=== PATIENT | male | born 1985 | race Caucasian/White ===

== ENCOUNTER 2017-12-28 16:41 | Emergency (ER) | payer OTHER ==
[~2017-12-28] VITALS: Ht 182.9 cm; Wt 83.5 kg
--- NOTE | 2017-12-28 18:23 | RADIOLOGY REPORT ---
EXAMINATION: XR HAND, RIGHT CLINICAL INFORMATION: Right hand fifth PIP dislocation, status post reduction COMPARISON: None TECHNIQUE: PA, lateral, and oblique views of the right hand. FINDINGS: The right hand fifth PIP joint is in normal anatomic alignment. The bones, joints and soft tissues are unremarkable. IMPRESSION: Right hand fifth PIP joint is in normal alignment. No associated fracture.
--- NOTE | 2017-12-28 18:32 | ED HAND/WRIST INJURY COMPLAINT ---
History of Present Illness General Chief Complaint: Hand or Wrist Injury Stated Complaint: R PINKY DISLOCATION Source: patient Exam Limitations: no limitations Vital Signs & Intake/Output Vital Signs & Intake/Output Vital Signs Date Time Temp Pulse Resp B/P B/P Pulse O2 O2 Flow FiO2 Mean Ox Delivery Rate 12/28 1836 80 18 122/72 99 Room Air ED Intake and Output 12/29 0000 12/28 1200 Intake Total Output Total Balance Patient 184 lb Weight Allergies Coded Allergies: No Known Allergies (12/28/17) Triage Note: 32 Y/O MALE STATES HE STRUCK A BOX AND DISLOCATED FINGER (R 5TH FINGER). DEFORMITY NOTED. PT DENIES OTHER COMPLAINTS. DECLINES OFFER OF PAIN MEDS EVALD BY TAMIE SMITH IN TRIAGE FINGER REDUCED IN TRIAGE. SPLINT PLACED BY TAMIE Triage Nurses Notes Reviewed? yes Occurred: just prior to arrival Duration: hour(s): (1), constant, continues in ED Timing: single episode today Injury Environment: home Severity: moderate, severe Severity Numbers: 6 Pain/Injury Location: Right: 5th finger. Context: blow Method of Injury: direct blow No Modifying Factors: none HPI: 32-year-old male medical history is evaluation of dislocated right fifth digit. Patient reports he was trying to kill a spider with his hand. He went with this. He missed the box and INATEAD dislocating his fifth digit on the right side of the PIP. No numbness or tingling or other injuries. No wrist pain. Broken skin no abrasions. (Alberto Barreto) Past History Travel History Traveled to [place] past 21 day No Medical History Any Pertinent Medical History? see below for history Neurological: NONE EENT: NONE Cardiovascular: NONE Respiratory: NONE Gastrointestinal: NONE Hepatic: NONE Renal: NONE Musculoskeletal: NONE Psychiatric: NONE Endocrine: NONE Blood Disorders: NONE Cancer(s): NONE HEAD WAITRESS/Reproductive: NONE Surgical History Surgical History: non-contributory Psychosocial History What is your primary language Bengali Tobacco Use: Never used Family History Hx Contributory? No (Alberto Barreto) Review of Systems Review of Systems Constitutional: Reports: no symptoms. EENTM: Reports: no symptoms. Respiratory: Reports: no symptoms. Cardiovascular: Reports: no symptoms. GI: Reports: no symptoms. Genitourinary: Reports: no symptoms. Musculoskeletal: Reports: joint pain, joint swelling. Skin: Reports: no symptoms. Neurological/Psychological: Reports: no symptoms. Hematologic/Endocrine: Reports: no symptoms. Immunologic/Allergic: Reports: no symptoms. All Other Systems: Reviewed and Negative (Alberto Barreto) Physical Exam Physical Exam General Appearance: well developed/nourished, no apparent distress, alert, awake Head: atraumatic, normal appearance Eyes: Bilateral: normal appearance, EOMI. Ears, Nose, Throat: hearing grossly normal Neck: normal inspection, full range of motion Cardiovascular/Respiratory: no respiratory distress Shoulder Left: normal range of motion, normal inspection Shoulder Right: normal range of motion, normal inspection Elbow Left: normal range of motion, normal inspection Elbow Right: normal range of motion, normal inspection Forearm Left: normal range of motion, normal inspection Forearm Right: normal range of motion, normal inspection Wrist Left: normal range of motion, normal inspection Wrist Right: normal range of motion, normal inspection Hand Left: normal inspection, normal range of motion Hand Right: evidence of injury, 5th finger, the right fifth digit is dislocated at the PIP joint. Neurovascular supply intact (Alberto Barreto) Progress Differential Diagnosis: contusion, dislocation, fracture, sprain Plan of Care: Patient is here with a right fifth digit dislocation at the PIP joint. The joint was reduced and patient was placed into a finger splint. Neurovascular supply remains intact. X-rays confirm joint reduction without fracture. Rest ice elevation compression with splint at all times follow-up with orthopedics Tylenol and baclofen for pain discussed return precautions patient agrees the plan Diagnostic Imaging: Viewed by Me: Radiology Read. Discussed w/RAD: Radiology Read. Radiology Impression: PATIENT: JENNIFER BERMUDEZ PRESENT AGE: 32 PATIENT ACCOUNT NO: [id number] : 84 LOCATION: [facility] ORDERING PHYSICIAN: Alberto WILLETT SERVICE DATE: 12/28/17 EXAM TYPE: RAD - XRY-HAND, RIGHT EXAMINATION: XR HAND, RIGHT CLINICAL INFORMATION: Right hand fifth PIP dislocation, status post reduction COMPARISON: None TECHNIQUE: PA, lateral, and oblique views of the right hand. FINDINGS: The right hand fifth PIP joint is in normal anatomic alignment. The bones, joints and soft tissues are unremarkable. IMPRESSION: Right hand fifth PIP joint is in normal alignment. No associated fracture. DICTATED BY: Katya Castellanos MD DATE/TIME DICTATED:12/28/171815 EXTRUSION DIE REPAIRER:JOSUE DATE/TIME TRANSCRIBED:12/28/171815 CONFIDENTIAL, DO NOT COPY WITHOUT APPROPRIATE AUTHORIZATION. <Electronically signed in Other Vendor System> SIGNED BY: Katya Castellanos MD 12/28/171822 (Alberto Barreto) Departure Departure Disposition: HOME OR SELF CARE Condition: Stable Clinical Impression Primary Impression: Dislocation, finger, interphalangeal joint Qualifiers: Encounter type: initial encounter Qualified Code: S63.279A - Dislocation of unspecified interphalangeal joint of unspecified finger, initial encounter Referrals: Lily Albarado MD (PCP/Family) Albino Lai MD Additional Instructions: REST, APPLY ICE, WEAR SPLINT AT ALL TIMES. TYLENOL/IBUPROFEN FOR PAIN. FOLLOW UP WITH ORTHO SOON POSSIBLE. RETURN WITH ANY CONCERNS. Departure Forms: Customer Survey General Discharge Information (Alberto Barreto) PA/STEAM AND POWER SUPERVISOR Co-Sign Statement Statement: ED Attending supervision documentation- I saw and evaluated the patient. I have also reviewed all the pertinent lab results and diagnostic results. I agree with the findings and the plan of care as documented in the PA's/STEAM AND POWER SUPERVISOR's documentation. x I have reviewed the ED Record and agree with the PA's/STEAM AND POWER SUPERVISOR's documentation. [] Additions or exceptions (if any) to the PAs/STEAM AND POWER SUPERVISOR's note and plan are summarized below: [] (Christiano PARKER,Ramon) Procedures Joint Reduction Joint Reduction Site: Left fifth finger PIP joint Reduction Attempts: 1 Pre-Procedure NV Exam: Yes Post-Procedure NV Exam: Yes Post Joint Reduction Film: joint reduced, no fracture seen (Alberto Barreto)
[2017-12-28 18:36] VITALS: BP 122/72
== END 2017-12-28 18:37 ==
LOC: ERH 16:41
DX: S63.286A Dislocation of proximal interphalangeal joint of right little finger, initial encounter (principal); W22.8XXA Striking against or struck by other objects, initial encounter; Y93.89 Activity, other specified; Y92.009 Unspecified place in unspecified non-institutional (private) residence as the place of occurrence of the external cause
CPT/HCPCS: 73130-RT